=== PATIENT | male | born 1945 | race African-American/Black ===

== ENCOUNTER 2022-05-17 10:21 | Day surgery (SDC) | payer OTHER, BC ==
[2022-04-22 15:07] VITALS: BMI 46.0
[2022-05-17 10:50] VITALS: RESP 18
[2022-05-17 12:00] VITALS: TEMP 97.1
[2022-05-17 12:13] VITALS: BP 110/70; PULSE 68
== END 2022-05-17 12:29 | disposition home or self-care (01) ==
LOC: FASU-ENDO 10:21
PROVIDERS: ATTEND Internal Medicine Gastroenterology
PROC: 0DJD8ZZ Inspection of Lower Intestinal Tract, Via Natural or Artificial Opening Endoscopic (ICD-10-PCS; principal; 2022-05-17 11:34)
DX: Z12.11 Encounter for screening for malignant neoplasm of colon (principal); K57.30 Diverticulosis of large intestine without perforation or abscess without bleeding
CPT/HCPCS: 82962